=== PATIENT | male | born 1945 | race Caucasian/White ===

== ENCOUNTER 2016-11-04 09:40 | Emergency (ER) | payer OTHER ==
[2016-11-04 09:56] VITALS: BP 141/72
--- NOTE | 2016-11-04 10:22 | UC ---
Respiratory Complaint HPI - HPI Summary HPI Summary: patient has been using home remedies for treating his cough and wheezing. However cough persists. - History of Current Complaint Chief Complaint: UCRespiratory Stated Complaint: CONGESTION COUGH Time Seen by Provider: 11/04/16 10:06 Hx Obtained From: Patient Onset/Duration: Sudden Onset, Lasting Weeks Timing: Constant Severity Initially: Moderate Severity Currently: Moderate Character: Cough: Nonproductive Aggravating Factors: Exertion, Deep Breaths, Recumbent Position Alleviating Factors: Nothing Associated Signs And Symptoms: Positive: Wheezing, Hoarseness - Risk Factors Pulmonary Embolism Risk Factors: Negative - Allergies/Home Medications Allergies/Adverse Reactions: Allergies Allergy/AdvReac Type Severity Reaction Status Date / Time No Known Allergies Allergy Verified 11/04/16 09:56 Home Medications: Home Medications Triamterene/HCTZ 37.5-25 MG* [Dyazide CAP*] 1 cap PO DAILY 11/04/16 [History Confirmed 11/04/16] amLODIPine TAB* [Norvasc 5 mg TAB*] 10 mg PO DAILY 11/04/16 [History Confirmed 11/04/16] PMH/Surg Hx/FS Hx/Imm Hx Previously Healthy: Yes Cardiovascular History Of: Reports: Hypertension - Surgical History Surgical History: None - Family History Known Family History: Positive: Hypertension - Social History Alcohol Use: None Substance Use Type: None Smoking Status (MU): Never Smoked Tobacco Review of Systems Constitutional: Negative Skin: Negative Eyes: Negative ENT: Negative Respiratory: Shortness Of Breath, Cough Cardiovascular: Negative Gastrointestinal: Negative Genitourinary: Negative Motor: Negative Neurovascular: Negative Musculoskeletal: Negative Neurological: Negative Psychological: Negative All Other Systems Reviewed And Are Negative: Yes Physical Exam Triage Information Reviewed: Yes Appearance: No Pain Distress, Well-Nourished, Ill-Appearing Vital Signs: Initial Vital Signs Temp 97.7 F 11/04/16 09:50 Pulse 96 11/04/16 09:50 Resp 15 11/04/16 09:50 BP 141/72 11/04/16 09:50 Pulse Ox 100 11/04/16 09:50 Vital Signs Reviewed: Yes Eye Exam: Normal Eyes: Positive: Conjunctiva Clear ENT Exam: Normal ENT: Positive: Pharyngeal erythema, Other: - bilateral cerumen impaction Dental Exam: Normal Neck exam: Normal Neck: Positive: Supple, Nontender, No Lymphadenopathy Respiratory Exam: Normal Respiratory: Positive: Chest non-tender, No respiratory distress, No accessory muscle use, Wheezing, Inspiration Cardiovascular Exam: Normal Cardiovascular: Positive: RRR, No Murmur, Pulses Normal Abdominal Exam: Normal Abdomen Description: Positive: Nontender, No Organomegaly, Soft Bowel Sounds: Positive: Present Musculoskeletal Exam: Normal Musculoskeletal: Positive: Strength Intact, ROM Intact, No Edema Neurological Exam: Normal Neurological: Positive: Alert, Muscle Tone Normal Psychological Exam: Normal Skin Exam: Normal UC Diagnostic Evaluation - Laboratory O2 Sat by Pulse Oximetry: 100 Respiratory Course/Dx - Course Course Of Treatment: hx obtained, exam performed, meds reviewed, ear irrigation completed. prednisone prescribed for wheezing - Differential Dx/Diagnosis Differential Diagnosis/HQI/PQRI: Asthma, Bronchitis, Influenza, Laryngitis, SARS , Sinusitis Provider Diagnoses: Bronchitis Discharge - Discharge Plan Condition: Stable Disposition: HOME Patient Education Materials: Wheezing (ED) Additional Instructions: Take the prednisone as prescribed, i recommend taking it early in the morning daily. Increase your fluid intake. It is safe to continue with your [place] remedie for symptom relief. Follow up if you develop increasing Respiratory issues.
== END 2016-11-04 10:30 | disposition home or self-care (01) ==
LOC: UCCORT 09:40
DX: J40 Bronchitis, not specified as acute or chronic (principal); I10 Essential (primary) hypertension; H61.23 Impacted cerumen, bilateral
CPT/HCPCS: 99212; G0463

== ENCOUNTER 2017-06-16 09:08 | Emergency (ER) | payer OTHER ==
[2017-06-16 09:16] VITALS: BP 131/73
--- NOTE | 2017-06-16 09:40 | UC ---
Lower Extremity/Ankle HPI - HPI Summary HPI Summary: 72 YO MALE INJURED RIGHT SECOND TOE YESTERDAY WAS BARE FOOT SPACE HEATER TIPPED OVER ON FOOT TOE BLEED A LITTLE UNSURE OF TD STATUS UNSURE OF PCN ALLERGY-OCCURRED WHEN HE WAS A KID - History of Current Complaint Chief Complaint: UCLowerExtremity Stated Complaint: FOOT INJ Time Seen by Provider: 06/16/17 09:39 Hx Obtained From: Patient Onset/Duration: Sudden Onset, Lasting Hours Severity Initially: Severe Severity Currently: Moderate Pain Intensity: 4 Pain Scale Used: 0-10 Numeric Aggravating Factor(s): Standing, Ambulation Alleviating Factor(s): Rest, Elevation Able to Bear Weight: Yes - Allergies/Home Medications Allergies/Adverse Reactions: Allergies Allergy/AdvReac Type Severity Reaction Status Date / Time Penicillins Allergy Unknown Verified 06/16/17 09:16 Reaction Details PMH/Surg Hx/FS Hx/Imm Hx Previously Healthy: Yes Respiratory History: Bronchitis - Surgical History Surgical History: None - Family History Known Family History: Positive: Hypertension - Social History Alcohol Use: None Substance Use Type: None Smoking Status (MU): Never Smoked Tobacco Review of Systems Constitutional: Negative Skin: Bruising Eyes: Negative ENT: Negative Respiratory: Negative Cardiovascular: Negative Gastrointestinal: Negative Genitourinary: Negative Motor: Negative Neurovascular: Negative Musculoskeletal: Arthralgia, Edema Neurological: Negative Psychological: Negative Is Patient Immunocompromised?: No All Other Systems Reviewed And Are Negative: Yes Physical Exam Triage Information Reviewed: Yes Appearance: Well-Appearing, No Pain Distress, Well-Nourished Vital Signs: Initial Vital Signs Temp 98 F 06/16/17 09:12 Pulse 98 06/16/17 09:12 Resp 16 06/16/17 09:12 BP 131/73 06/16/17 09:12 Pulse Ox 99 06/16/17 09:12 Eyes: Positive: Conjunctiva Clear ENT: Negative: Hearing grossly normal, Nasal congestion, Nasal drainage, Trismus , Muffled voice, Hoarse voice, Sinus tenderness Neck: Positive: Supple Respiratory: Positive: Lungs clear, Normal breath sounds, No respiratory distress Cardiovascular: Positive: RRR, No Murmur. Negative: Tachycardia, Bradycardia Musculoskeletal: Positive: Edema @, Other: - SEE IMAGE Neurological: Positive: Alert Psychological Exam: Normal Skin Exam: Other - SEE IMAGE Diagnostics - Radiology No standard instances Xray Interpretation: Positive (See Comments) - Mildly comminuted, displaced, compound/open fracture of the distal phalanx Radiology Interpretation Completed By: Radiologist Lower Extremity Course/Dx - Differential Dx/Diagnosis Provider Diagnoses: OPEN FRAC[place] RIGHT SEOND TOE DISTAL PHALANX Discharge - Discharge Plan Condition: Stable Disposition: HOME Prescriptions: Cephalexin CAP* [Keflex CAP*] 500 mg PO QID #28 cap Mupirocin 2% OINT* [Bactroban 2 % Oint*] 1 applic TOPICAL TID #1 tube Patient Education Materials: Toe Fracture (ED) Referrals: Heber Wong MD [Medical Doctor] - As Soon As Possible Additional Instructions: ACTIVITY TOLERATED POST OP SHOE GENTLY CLEAN TOE 2-3 X DAY WITH SOAP AND WATER APPLY BACTROBAN TO OPEN AREA ELEVATE RECHECK FOR CONCERNS OF INFECTION BECAUSE YOUR SKIN IS OPEN I SUGGEST YOU FOLLOW UP WITH AN ORTHOPEDIST. THIS IS BECAUSE OF THE RISK OF BONE INFECTION. TYLENOL OR ADVIL FOR PAIN Images Feet (Multiple View): 1 - FUSIFORM SWELLING/ECCYMOSIS/MINUTE LAC OVER PIP/NO SUBUNGUAL HEMATOMA
[2017-06-16] MEDS ORDERED: Tetan/Diph/Pertus SYR(Tdap)* 0.5 ML SYR(BOOSTRIX) use SYR IM ONE (09:43)
--- NOTE | 2017-06-16 10:21 | RAD ---
Indication: Second digit RIGHT foot pain and edema. Whole digit black and blue with open wound at the distal anterior margin. Crush injury 2 days ago. Comparison: No relevant prior exams available on the [facility] PACS for comparison. Technique: 3 views RIGHT second finger. Report: Mildly comminuted fracture at the distal phalanx extending from the plantar base to the tuft with up to one bone width plantar displacement and 2 mm proximal displacement of the tuft and plantar fracture moieties. No definitive articular surface discontinuity or incongruity at the DIP joint articular margin. Normal articular alignment. Soft tissue swelling throughout with suggestion of subcutaneous emphysema at the distal margin of the nailbed. On this basis the fracture should be considered compound/open. IMPRESSION: Mildly comminuted, displaced, compound/open fracture of the distal phalanx.
== END 2017-06-16 10:43 | disposition home or self-care (01) ==
LOC: UCCORT 09:08
DX: S92.531B Displaced fracture of distal phalanx of right lesser toe(s), initial encounter for open fracture (principal); X58.XXXA Exposure to other specified factors, initial encounter; Y92.9 Unspecified place or not applicable; Z88.0 Allergy status to penicillin
CPT/HCPCS: 90471; 90715; 99213; G0463

== ENCOUNTER 2017-07-14 10:04 | Emergency (ER) | payer OTHER ==
--- NOTE | 2017-07-14 11:01 | UC ---
Respiratory Complaint HPI - HPI Summary HPI Summary: 72 yo gentleman c/o last 4 days + cough, worse at night. Minimal productive but at night mild + white productive. No chest pain. No sob, no increase edema. No rash. No GI issues. Takes several medication, no recent change. Reports that over the counter "tylenol" has helped the cough. Denies leg swelling or swelling elsewhere. No change in habits. Drinks water ok. - History of Current Complaint Chief Complaint: UCRespiratory Stated Complaint: UPPER RESP,COUGH Time Seen by Provider: 07/14/17 10:50 Hx Obtained From: Patient - Allergies/Home Medications Allergies/Adverse Reactions: Allergies Allergy/AdvReac Type Severity Reaction Status Date / Time Penicillins Allergy Unknown Verified 07/14/17 10:44 Reaction Details Home Medications: Home Medications Calcium Carbonate-Vitamin D W/ [Caltrate 600+D Plus] 1 tab PO DAILY 07/14/17 [ History Confirmed 07/14/17] Dextromethorphan-Guaifenesin [Robitussin Cough+Chest Co 10-200 mg] 1 cap PO PRN 07/14/17 [History] Multiple Vitamins W/ Minerals [Multivitamin Men] 1 tab PO DAILY 07/14/17 [ History Confirmed 07/14/17] PMH/Surg Hx/FS Hx/Imm Hx Previously Healthy: Yes - but see pmh. However recently healthy. Denies heart attack. - Surgical History Surgical History: None - Family History Known Family History: Positive: Hypertension - Social History Alcohol Use: None Substance Use Type: None Smoking Status (MU): Never Smoked Tobacco - Immunization History Most Recent Influenza Vaccination: FALL 2016 Review of Systems Constitutional: Negative Skin: Negative Eyes: Negative ENT: Nasal Discharge, Sinus Congestion Respiratory: Cough Cardiovascular: Negative Gastrointestinal: Negative Genitourinary: Negative Motor: Negative Neurovascular: Negative Musculoskeletal: Negative Neurological: Negative Psychological: Negative Is Patient Immunocompromised?: No All Other Systems Reviewed And Are Negative: Yes Physical Exam Triage Information Reviewed: Yes Appearance: Well-Nourished, Thin Vital Signs: Initial Vital Signs Temp 98.4 F 07/14/17 10:50 Pulse 94 07/14/17 10:50 Resp 20 07/14/17 10:50 Pulse Ox 100 07/14/17 10:50 Vital Signs Reviewed: Yes Eye Exam: Normal - grossly normal ENT: Positive: Pharyngeal erythema - mild post pharyngeal redness, no sores, Nasal drainage - clear mild runny nose, TM dull - tm dull au Neck exam: Normal - no jvd appreciated Neck: Positive: Supple, Nontender Respiratory Exam: Normal Respiratory: Positive: Chest non-tender, Lungs clear, Normal breath sounds, No respiratory distress, No accessory muscle use Cardiovascular Exam: Normal Cardiovascular: Positive: RRR, No Murmur, Pulses Normal - heart rate correlates with left radial pulse, Brisk Capillary Refill Abdominal Exam: Normal Abdomen Description: Positive: Nontender Musculoskeletal Exam: Normal Musculoskeletal: Positive: Strength Intact, ROM Intact, No Edema - minimal edema. + evidence of chronic venous insuff, + hemosiderosis, + flaky skin. R foot post op shoe. (recent toe break) Neurological Exam: Normal - nonfocal grossly normal Psychological Exam: Normal - sitting up, conversing easily and appropriately NAD Skin Exam: Normal - nondiaphoretic. no visible or reported rash. UC Diagnostic Evaluation - Laboratory O2 Sat by Pulse Oximetry: 100 Respiratory Course/Dx - Course Course Of Treatment: Reviewed CXR and cxr report - NAD. Reviewed EKG (in [employer]) - no old for comp. SR. I spoke with Dr. Aguilar - f/u in office next couple days. We will order blood work (see orders). D/w pt. He plans to go to the office today to schedule appointment and drop off today's papers with instructions / ekg/ cxr report. No abx at this time. Consider viral (likely) vs fluid. Questions as posed answered to the best of my ability. - Differential Dx/Diagnosis Provider Diagnoses: URI / cough Discharge - Discharge Plan Condition: Stable Disposition: HOME Patient Education Materials: Chronic Cough (ED), Cold Symptoms (ED) Referrals: Robson Aguilar MD [Primary Care Provider] - Additional Instructions: Follow up with Dr. Aguilar in the next 2 days. Go to the Emergency Department for worse or new problems in the meantime. Blood work today. Chest xray today. EKG today.
--- NOTE | 2017-07-14 11:45 | RAD ---
INDICATION: Cough and shortness of breath x4 days COMPARISON: Chest x-ray dated April 11, 2013 TECHNIQUE: PA and lateral views of the chest were obtained. FINDINGS: The heart and mediastinum are normal in size and contour. The lungs are grossly clear. There is no evidence of large pleural effusion. Visualized bones are normal for the patient's age. There is no radiographic evidence of free air beneath the diaphragm IMPRESSION: No radiographic evidence of acute cardiopulmonary disease.
[2017-07-14 18:37] LABS: Hematocrit 39 % (42-52); Hemoglobin 13.3 g/dl (14.0-18.0); Mean Corpuscular HGB Conc 34 g/dl (31-36); Mean Corpuscular Hemoglobin 32 pg (27-31); Mean Corpuscular Volume 93 fL (80-94); Mean Platelet Volume 8 um3 (7.4-10.4); Red Cell Distribution Width 13 % (10.5-15); White Blood Count 10.4 10^3/ul (3.5-10.8)
[2017-07-14 18:40] LABS: Add Diff/Slide Review? Slide Review Added; Comments Flag Yes
[2017-07-14 19:59] LABS: Albumin 4.2 g/dL (3.2-5.2); BUN/Creatinine Ratio 14.8 (8-20); Calcium 9.5 mg/dL (8.6-10.3); EGFR African American 71.2 (>60); EGFR Non-African American 55.4 (>60); Magnesium 2.1 mg/dL (1.9-2.7); Total Bilirubin 0.5 mg/dL (0.2-1.0); Total Protein 7.2 g/dL (6.4-8.9)
[2017-07-14 20:06] LABS: Add Path Review? YES; Eosinophils % 2 % (0-6); Immature Granulocytes 1 % (0-9); Neutrophil % 70 % (38-83); RBC Morphology Normal (Normal); Reactive Lymph % 8 % (0-6)
== END 2017-07-14 12:19 | disposition home or self-care (01) ==
LOC: UCCORT 10:04
DX: J06.9 Acute upper respiratory infection, unspecified (principal); R05 Cough; Z88.0 Allergy status to penicillin
CPT/HCPCS: 36415; 71020; 80053; 83735; 83880; 85025; 85060; 93005; 99211; G0463

== ENCOUNTER 2018-06-01 09:50 | Emergency (ER) | payer MEDICARE, OTHER ==
[2018-06-01 10:18] VITALS: BP 140/71
--- NOTE | 2018-06-01 11:30 | UC ---
Lower Extremity/Ankle HPI - HPI Summary HPI Summary: 73 year old male presents with 1 week history of left lower leg pain. States pain is located over luo and in calf. Pain is intermittent and is associated with walking. Improves with rest and OTC acetaminophen. He also reports some discomfort in left 2nd toe beneath the toenail. He has known onychomycosis of the toes of the left foot and is followed by podiatry. Next appointment 2017. Denies fever, chills, erythema, discharge, lower extremity edema, chest pain, shortness of breath, numbness of tingling. - History of Current Complaint Chief Complaint: UCLowerExtremity Stated Complaint: LEFT LEG INJURY Time Seen by Provider: 06/01/18 10:18 Hx Obtained From: Patient Onset/Duration: Gradual Onset, Lasting Weeks - 1 Severity Currently: Mild Pain Intensity: 5 Aggravating Factor(s): Ambulation Alleviating Factor(s): Rest, OTC Meds Able to Bear Weight: Yes - Allergies/Home Medications Allergies/Adverse Reactions: Allergies Allergy/AdvReac Type Severity Reaction Status Date / Time Penicillins Allergy Unknown Verified 06/01/18 10:14 Reaction Details Home Medications: Home Medications Calcium Carbonate/Vitamin D3 [Caltrate 600+D] 1 chw PO DAILY 06/01/18 [History Confirmed 06/01/18] PMH/Surg Hx/FS Hx/Imm Hx Previously Healthy: Yes Cardiovascular History: Hypertension Other Cardiovascular History: Varicose veins - Surgical History Surgical History: None Surgery Procedure, Year, and Place: DENIES - Family History Known Family History: Positive: Hypertension - Social History Occupation: Disabled Lives: Alone Alcohol Use: None Substance Use Type: None Smoking Status (MU): Never Smoked Tobacco - Immunization History Most Recent Influenza Vaccination: FALL 2016 Review of Systems Constitutional: Negative Skin: Negative Respiratory: Negative Cardiovascular: Negative Motor: Negative Neurovascular: Negative Musculoskeletal: Other: - See HPI Is Patient Immunocompromised?: No All Other Systems Reviewed And Are Negative: Yes Physical Exam Triage Information Reviewed: Yes Appearance: Well-Appearing, No Pain Distress, Well-Nourished Vital Signs: Initial Vital Signs Temp 98 F 06/01/18 10:11 Pulse 98 06/01/18 10:11 Resp 18 06/01/18 10:11 BP 140/71 06/01/18 10:11 Pulse Ox 100 06/01/18 10:11 Respiratory: Positive: Lungs clear, Normal breath sounds, No respiratory distress Cardiovascular: Positive: RRR, No Murmur, Pulses Normal, Brisk Capillary Refill Musculoskeletal: Positive: Strength Intact, ROM Intact, No Edema, Other: - Calf supple without erythema, swelling, or tenderness. Significant vericose veins without tenderness or erythema. Distal pulses 2+. Gait steady. Neurological: Positive: Alert, Other: - Sensation intact distally Skin: Positive: Other - Onychomycosis of the toenails left foot. No erythema, edema, or discharge. Diagnostics - Radiology No standard instances Radiology Interpretation Completed By: Radiologist Summary of Radiographic Findings: Patient Name: LAY BALDERAS Medical Record#: [id number]. Ordering Physician: Steve Pena NP Acct.#: [id number]. : 1945 Age: 73 Sex: M Location: [facility]. Exam Date: 1039 ADM Status: REG ER. Order Information: LOWER LEG LEFT. Accession Number: [id number]. CPT: 39678. Indication: 1 week of left lower leg pain. Comparison: None. Technique: AP and lateral views left lower leg. Report: The visualized bones are adequately corticated and well aligned. There is no acute. fracture, dislocation or other focal abnormality. The soft tissues appear grossly normal. Depicted better on the lateral view, there is a 5 mm wide serpiginous densities in the. subcutaneous fat consistent with varicose veins. IMPRESSION: 1. No radiographically apparent acute bony abnormality involving the left lower leg. 2. Radiographic findings are suggestive of superficial varicose veins which can cause. gravity dependent lower leg pain in some clinical situations. If this correlates to. physical examination further characterization can be made with a nonemergent venous reflux. study. If the patient's symptoms persist, follow-up imaging is recommended. Lower Extremity Course/Dx - Course Course Of Treatment: 73 year old male presents with 1 week history of left lower leg pain and 2nd left toenail discomfort. History of onychomycosis of toenails left foot and followed by podiatry. Afebrile. Exam unremarkable except for some varicosities to left lower leg and onychomycosis of toenails left foot. X-ray of left lower leg obtained at patient's request was negative for acute pathology. Low suspicion for DVT as he has no risk factors or symptoms. Cannot exclude PAD especially with history of pain with ambulation that improves with rest. He has appointment with podiatry scheduled for 06/25/2018 for follow up of onychomycosis. Recommend conservative treatment with OTC analgesics for pain. He is to follow up with PCP in 1 week for reevaulation. Warning symptoms reviewed with patient. Verbalizes understanding and agrees with POC. - Differential Dx/Diagnosis Differential Diagnosis/HQI/PQRI: Arthritis, DVT, Phlebitis, Other - PAD/PVD Provider Diagnoses: left leg pain, onychomycosis toes of left foot Discharge - Sign-Out/Discharge Documenting (check all that apply): Patient Departure All imaging exams completed and their final reports reviewed: Yes - Discharge Plan Condition: Stable Disposition: HOME Patient Education Materials: Leg Pain (ED) Referrals: Robson Aguilar MD [Primary Care Provider] - 7 Days (If symptoms persist) Additional Instructions: The x-ray performed in the clinic today was normal. Your exam did not show any concern for a blood clot however you do have significant varicose veins which could account for your pain. There may also be some underlying peripheral artery disease although I have a very low suspicion for this. You do have a fungal infection of the toenails of the left foot which I think is underlying your concerns for the toenail. Keep your appointment with podiatry as scheduled. You may take [id number] acetaminophen (Tylenol) or ibuprofen (Advil, Motrin) according to directions as needed for pain. Follow-up with your primary care provider in one week for reevaluation. Seek immediate medical attention in the emergency room if you develop fever greater than 100.5 F, have worsening of pain, redness or swelling of the lower leg, chest pain, difficulty breathing, numbness or tingling in the leg foot or toes, or any worsening of symptoms. - Billing Disposition and Condition Condition: STABLE Disposition: Home
== END 2018-06-01 11:38 | disposition home or self-care (01) ==
LOC: UCCORT 09:50
DX: M79.662 Pain in left lower leg (principal); I83.92 Asymptomatic varicose veins of left lower extremity; B35.1 Tinea unguium; I10 Essential (primary) hypertension; Z88.0 Allergy status to penicillin
CPT/HCPCS: 99211; G0463

== ENCOUNTER 2019-01-05 13:03 | Emergency (ER) | payer MEDICARE, OTHER ==
[2019-01-05 13:22] VITALS: BP 134/46
--- NOTE | 2019-01-05 13:48 | UC ---
Knee Pain HPI - HPI Summary HPI Summary: 73-year-old male presents with complaints of left knee pain. States 2 days ago he tripped and fell in his workshop landing on his left knee. Has noticed some redness to the anterior knee and and reports progressively worsening pain. States he knelt down on the knee this morning to pray and the pain became very severe. He is able to bear weight with pain. He is taken acetaminophen 500 mg with no relief in pain. Denies any numbness or tingling. - History of Current Complaint Chief Complaint: UCGeneralIllness Stated Complaint: LEFT KNEE COMPLAINT/PAIN Time Seen by Provider: 01/05/19 13:41 Hx Obtained From: Patient Pain Intensity: 10 - Allergies/Home Medications Allergies/Adverse Reactions: Allergies Allergy/AdvReac Type Severity Reaction Status Date / Time Penicillins Allergy Unknown Verified 01/05/19 13:22 Reaction Details Home Medications: Home Medications Acetaminophen [Tylenol Extra Strength] 1 tab PO ONCE 01/05/19 [History Confirmed 01/05/19] Multivitamin [Xjg-[id number]] 1 tab PO DAILY 01/05/19 [History Confirmed 01/05] PMH/Surg Hx/FS Hx/Imm Hx Cardiovascular History: Hypertension - Surgical History Surgical History: None Surgery Procedure, Year, and Place: DENIES - Family History Known Family History: Positive: Hypertension - Social History Occupation: Disabled Lives: Alone Alcohol Use: None Substance Use Type: None Smoking Status (MU): Never Smoked Tobacco - Immunization History Most Recent Influenza Vaccination: FALL 2016 Review of Systems All Other Systems Reviewed And Are Negative: Yes Constitutional: Positive: Negative Skin: Negative: Bruising Respiratory: Positive: Negative Cardiovascular: Positive: Negative Gastrointestinal: Positive: Negative Genitourinary: Positive: Negative Motor: Negative: Weakness Neurovascular: Negative: Decreased Sensation Musculoskeletal: Positive: Arthralgia - See HPI Neurological: Positive: Negative Is Patient Immunocompromised?: No Physical Exam - Summary Physical Exam Summary: GENERAL APPEARANCE: Well developed, well nourished, alert and cooperative, and appears to be in no acute distress. CARDIAC: Normal S1 and S2. No S3, S4 or murmurs. Rhythm is regular. There is no peripheral edema, cyanosis or pallor. Extremities are warm and well perfused. Capillary refill is less than 2 seconds. Peripheral pulses intact. LUNGS: Clear to auscultation without rales, rhonchi, wheezing or diminished breath sounds. ABDOMEN: Positive bowel sounds. Soft, nondistended, nontender. No guarding or rebound. No masses or hepatosplenomegally. MUSKULOSKELETAL: Normal muscular development. Limping gait. EXTREMITIES: Tenderness, erythema, and increased warmth over the left patella. Full range of motion to the left knee. No laxity noted. Circulation and sensation intact. SKIN: Skin normal color, texture and turgor. Triage Information Reviewed: Yes Vital Signs: Initial Vital Signs Temp 99.3 F 01/05/19 13:18 Pulse 93 01/05/19 13:18 Resp 18 01/05/19 13:18 BP 134/46 01/05/19 13:18 Pulse Ox 100 01/05/19 13:18 Vital Signs Reviewed: Yes Diagnostics - Radiology No standard instances Radiology Interpretation Completed By: Radiologist Summary of Radiographic Findings: Order Information: KNEE LEFT 4+ VWS. Accession Number: [id number]. CPT: 07201. Indication: Left knee pain. 4 views of left knee demonstrates no fracture or dislocation. No other bone or joint abnormalities identified. No joint effusion is noted. IMPRESSION: No fracture of the left knee is noted. Knee Pain Course/Dx - Course Course Of Treatment: 73-year-old male presents with complaints of left knee pain. States 2 days ago he tripped and fell in his workshop landing on his left knee. Has noticed some redness to the anterior knee and and reports progressively worsening pain. States he knelt down on the knee this morning to pray and the pain became very severe. He is able to bear weight with pain. He is taken acetaminophen 500 mg with no relief in pain. Denies any numbness or tingling. Afebrile. Vital signs stable. Patient had tenderness, erythema, and increased warmth over the left patella with full range of motion and no laxity to the knee. He was able to bear weight on the knee with discomfort. X-ray showed no acute fracture. Reviewed results with the patient. I suspect that he has a traumatic prepatellar bursitis and I'm recommending conservative treatment with acetaminophen and RICE. He is to follow-up with orthopedic surgery in 7 days if symptoms are not improving. Anticipatory guidance and warning symptoms reviewed with the patient. Verbalizes understanding and agrees with plan of care. - Differential Dx/Diagnosis Differential Diagnosis/HQI/PQRI: Bursitis, Dislocation, Fracture (Closed), Sprain Provider Diagnosis: Prepatellar bursitis of left knee Discharge - Sign-Out/Discharge Documenting (check all that apply): Patient Departure All imaging exams completed and their final reports reviewed: Yes - Discharge Plan Condition: Stable Disposition: HOME Patient Education Materials: Knee Bursitis (ED) Referrals: Robson Aguilar MD [Primary Care Provider] - Additional Instructions: The x-ray performed in the clinic today showed no evidence of a fracture. Based on your history and exam I suspect that you have a condition called pre- patellar bursitits which is inflammation of a fluid-filled sac that sits in front of your knee cap. Rest the knee as much as possible. You may walk and bear weight as tolerated. Apply ice to the affected area for 15-20 minutes at least 4 times a day to help with the pain and swelling. Elevate the leg to help reduce swelling. Take acetaminophen (Tylenol) according to directions as needed for pain. Follow up with orthopedic surgery in 7 days if symptoms do not improve. Seek immediate medical attention if you have severe pain not managed with pain medication, you are unable to walk or bear any weight, develop numbness or tingling in the foot or toes, or have any worsening of symptoms. - Billing Disposition and Condition Condition: STABLE Disposition: Home
== END 2019-01-05 14:17 | disposition home or self-care (01) ==
LOC: UCCORT 13:03
DX: W01.0XXA Fall on same level from slipping, tripping and stumbling without subsequent striking against object, initial encounter (principal); Y92.89 Other specified places as the place of occurrence of the external cause; M70.42 Prepatellar bursitis, left knee; Y93.01 Activity, walking, marching and hiking; I10 Essential (primary) hypertension
CPT/HCPCS: 99211; G0463